=== PATIENT | male | born 2005 | race African-American/Black ===

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

== ENCOUNTER 2023-11-28 22:49 | Emergency (ER) | payer SELFPAY ==
[2023-11-28 22:51] VITALS: BP 135/109; PULSE 70; RESP 16; TEMP 36.2; O2SAT 97
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
[2023-11-29 00:24] VITALS: BP 124/74; PULSE 69; RESP 17; TEMP 36.4; O2SAT 99
== END 2023-11-29 00:25 | disposition home or self-care (01) ==
PROVIDERS: Emergency Provider Emergency Medicine; PCP Family Medicine; Visit Provider Emergency Medicine
DX: S06.0X0A Concussion without loss of consciousness, initial encounter (principal); F17.210 Nicotine dependence, cigarettes, uncomplicated; V89.2XXA Person injured in unspecified motor-vehicle accident, traffic, initial encounter; F12.90 Cannabis use, unspecified, uncomplicated
CPT/HCPCS: 70450; 99282

== ENCOUNTER 2025-04-09 17:54 | Emergency (ER) | payer OTHER, SELFPAY ==
[2025-04-09 17:55] VITALS: BP 126/82; PULSE 67; RESP 18; TEMP 36.2; O2SAT 98; BMI 20.7
--- NOTE | 2025-04-09 18:10 | RAD_ITS ---
PROCEDURE: HUMERUS MIN 2 VIEWS 04/09/2025 REASON FOR EXAM: INJURY/PAIN TECHNIQUE: Procedure Code: RADHUM Modality: DX Procedure: HUMERUS MIN 2 VIEWS Laterality: Left COMPARISON: None. FINDINGS: No acute fracture or dislocation. Alignment is anatomic. Preserved visualized joint spaces. No aggressive osseous lesion. No marked soft tissue swelling or radiopaque foreign body. RAD/Humerus min 2 Views IMPRESSION: No acute fracture or dislocation. Reading Location: [id number]
[2025-04-09 18:13] VITALS: BP 126/82; PULSE 67; RESP 18; TEMP 36.2; O2SAT 98; BMI 20.7
--- NOTE | 2025-04-09 18:15 | RAD_ITS ---
PROCEDURE: ELBOW MIN 3 VIEWS 04/09/2025 REASON FOR EXAM: INJURY/PAIN TECHNIQUE: Procedure Code: RADEL Modality: DX Procedure: ELBOW MIN 3 VIEWS Laterality: Left COMPARISON: None. FINDINGS: No acute fracture or dislocation. Alignment is anatomic. Preserved joint spaces. No aggressive osseous lesion. No appreciable joint effusion, soft tissue swelling or radiopaque foreign body. RAD/Elbow min 3 Views IMPRESSION: No acute fracture or dislocation. Reading Location: [id number]
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
--- NOTE | 2025-04-09 19:26 | EDS_ITS ---
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 Associated Symptoms Associated Symptoms: Positive for Loss of function (Reluctant to move his left upper extremity.) and - (There was no head trauma. He denies neck pain.); Negative for Parasthesias, Weakness, Inability to ambulate, Loss of consciousness or Amnesia Narrative Narrative: Patient is a 19-year-old [id number] male. He presents with injury to his left shoulder and elbow after fall from truck. He landed on his elbow which caused him to have trauma against his shoulder. He denies head pain or headache. He denies ringing his ears decreased hearing. He denies neck pain. He denies paresthesia or anesthesia upper or lower extremities. He denies weakness in his upper or lower extremities. He denies chest pain. No shortness of breath. He denies abdominal pain. [place] nausea or vomiting. He presented from work. Prior similar symptoms: No Recent Illness/Hospitalization: No PFSH PFSH Home Medications ?Medication ?Instructions ?Recorded ?Last Taken ?Type naproxen 500 mg tablet 500 mg PO BID #14 tabs 04/09 Unknown Rx Allergy/AdvReac Type Severity Reaction Status Date / Time No Known Allergies Allergy Verified 04/09/25 17:55 Social History Smoking Status: Current every day smoker tobacco type: e-cigarettes substance use type: marijuana ROS ROS ED Constitutional Constitutional ED: Denies chills, fever(s), subjective or sweats Eyes Eyes: Denies blurry vision or change in vision ENT ENT ED: Reports other Details: HPI narrative and no epistaxis Cardiovascular Cardiovascular: Denies chest pain or palpitations Respiratory/Chest Respiratory/Chest: Denies cough or dyspnea Gastrointestinal Gastrointestinal: Denies abdominal pain, nausea or vomiting Musculoskeletal Musculoskeletal: Reports other Details: Detailed HPI narrative ; Denies back pain or neck pain Integumentary Denies rash Neurologic Neurologic: Denies headache(s), paresthesias or weakness Hematologic/Lymphatic Hematologic/Lymphatic: Denies easy bleeding or easy bruising EXAM Physical Exam Const Vital Signs: 04/09/25 17:55 04/09/25 18:09 04/09/25 18:13 Temperature 97.1 F L 97.1 F L Temperature Source Temporal Temporal Pulse Rate 67 67 Respiratory Rate 18 18 Respiratory Effort Normal Blood Pressure 126/82 H 126/82 H Blood Pressure Mean 96 96 Pulse Ox 98 98 Oxygen Delivery Method Room Air Room Air Positive well nourished and well developed Constitutional Narrative: Patient appears uncomfortable. He has his left upper extremity internally rotated and holding it against his chest. He is reluctant to move it. General Appearance ED: well developed HEENT Reports TM's clear atraumatic; Negative for tenderness Nose: Negative for septum abnormal Tympanic Membrane ED: Yes TM's clear Eyes PERRL and EOMs intact bilaterally General Eye ED: Yes other Other Details: There is no subconjunctival hemorrhage. Neck full ROM General: Negative for tenderness Chest Wall palpation of chest normal Resp normal respiratory effort and clear to auscultation bilaterally Cardio regular rhythm, S1 normal heart sound, S2 normal heart sound and no murmurs Rate: regular rate Back/Spine no thoracic nor lumbar tenderness Extremity normal to inspection; Negative for full ROM Extremity Narrative: Patient has pain with passive range of motion of the shoulder. He is reluctant to internally extra rotate at the shoulder. He is reluctant to supinate pronate at the elbow. He has no pain ovation over the clavicle or AC joint. He has pain ovation of the proximal humerus. There is pain ovation over the radial head with supination pronation. There is no pain ovation of the lateral medial epicondyle olecranon process. Axillary, radial, ulnar and median nerve are intact. Radial pulses palpable. There is no pain ovation of the distal radius or ulna, carpal bones, metacarpal bones or phalanges of his thumb and finger. There is no subungual hematoma noted. Neuro oriented x3, CN's II-XII intact bilaterally, moves all extremities, no focal motor deficits, no sensory deficits noted and gait normal Neuro Narrative: There is no dysmetria. Jada Coma Scale: document GCS findings Spontaneous Obeys Commands Oriented 15 Sensorium / Orientation: alert Psych mental status grossly normal and thought process normal Skin no rashes or lesions noted, no wounds, skin turgor normal and no jaundice MDM MDM MDM Narrative Medical decision making narrative: X-ray of the shoulder and elbow obtained to evaluate for contusion versus fracture. Radiography Chest X-Ray - ED: Read by ED Physician (Three-view x-ray of the left shoulder reveals no fracture, subluxation or dislocation. The AC joint appears normal. There is no evidence of a fracture to the clavicle either.) and - (Three-view x- ray of the elbow reveals no anterior posterior fat pad. There is no fracture, subluxation or dislocation.) Diagnostic Testing: Clinical Impression(s) from Imaging Studies Humerus X-Ray 04/09/25 18:10 IMPRESSION: No acute fracture or dislocation. Reading Location: [facility] Elbow X-Ray 04/09/25 18:15 IMPRESSION: No acute fracture or dislocation. Reading Location: [facility] Treatment and Re-Evaluation Narrative: Patient was informed of his results. He is discharged to home. He is given off work for the remainder of his shift. He is treated with NSAIDs since he has no contraindication. He was informed to apply ice. Discharge Plan Triage Chief Complaint: Fall ED Provider: Polo Norwood Dx/Rx/DC Orders Clinical Impression: Injury due to fall, Contusion of left elbow, initial encounter, Contusion of left shoulder, initial encounter Instructions: ED Contusion, Elbow, ED Shoulder Sprain Prescriptions: New naproxen 500 mg tablet 500 mg PO BID Qty: 14 0RF Stand Alone Forms: ED Work / School Excuse Primary Care Provider: David Smith Referrals: [facility] [Group of Physicians, Medical] - 3-5 Days David Smith MD [Primary Care Provider, Family Practice] Activity Restrictions/Additional Instructions: 1. You may feel worse over the next 24 to 48 hours. 2. You may hurt in more places you presently do. 3. Apply ice 6-8 times a day to your left shoulder and elbow. Do not use heati ng pad. 4. Take medication as prescribed. Print Language: Ethiopian Disposition Disposition: Home, Self Care
== END 2025-04-09 19:50 | disposition home or self-care (01) ==
PROVIDERS: Emergency Provider Emergency Medicine; PCP Family Medicine; Visit Provider Emergency Medicine
DX: S40.012A Contusion of left shoulder, initial encounter (principal); S50.02XA Contusion of left elbow, initial encounter; F17.290 Nicotine dependence, other tobacco product, uncomplicated; Y99.0 Civilian activity done for income or pay; V58.4XXA Person boarding or alighting a pick-up truck or van injured in noncollision transport accident, initial encounter
CPT/HCPCS: 73060; 73080; 99283